=== PATIENT | female | born 1975 | race Caucasian/White ===

== ENCOUNTER 2023-04-03 15:16 | Emergency (ER) | payer MEDICARE, MEDICAID, SELFPAY ==
--- NOTE | ~2023-04-03 | CT_ITS ---
EXAMINATION: CT ABDOMEN AND PELVIS WITH CONTRAST CLINICAL INFORMATION: Abdominal pain. COMPARISON: None available. TECHNIQUE: Multidetector volumetric images were obtained from the superior aspect of the liver through the pubic symphysis following administration 85 mL of Omnipaque 350 intravenous contrast. Sagittal and coronal reformatted images were obtained on the technologist's workstation. Oral Contrast: No. This CT examination was performed using dose optimization techniques as appropriate, variously including the following: *Automated exposure control. *Adjustment of mA and/or kV according to patient size (this includes techniques or standardized protocols for targeted exams where dose is matched to indication/reason for exam; i.e. extremities or head). *Use of iterative reconstruction technique. DLP: 481 mGy-cm FINDINGS: LUNG BASES: The visualized lung bases are unremarkable. LIVER, GALLBLADDER, AND BILIARY TREE: The liver is normal in size, shape, and attenuation. No focal hepatic lesion or biliary ductal dilatation is present. The gallbladder is unremarkable with no evidence of radiopaque gallstones, gallbladder wall thickening, or obvious pericholecystic inflammatory changes. PANCREAS: Unremarkable. SPLEEN: Unremarkable. ADRENAL GLANDS: Unremarkable. KIDNEYS AND URETERS: The kidneys are normal in size, shape, and attenuation. No hydronephrosis, hydroureter, or calculi seen. No perinephric stranding. BLADDER: Unremarkable. GASTROINTESTINAL TRACT: The small and large bowel are unremarkable. The appendix extends medially. The appendix is borderline in size measuring 7 mm. ABDOMINAL WALL: No significant hernia is appreciated. LYMPH NODES: Normal. VASCULAR: Unremarkable. PELVIC VISCERA: There is a small amount of free fluid within the pelvis. OSSEOUS STRUCTURES: Unremarkable. CT/CT abdomen pelvis w IV con IMPRESSION: Borderline appendix measuring 7 mm. No periappendiceal infiltration. Correlation and clinical follow-up suggested. Minimal free fluid within the pelvis. No other abnormality identified. Fleischner guidelines were followed.
[2023-04-03 15:44] VITALS: BP 133/92; PULSE 81; RESP 16; TEMP 37.1; O2SAT 98; BMI 32.5
--- NOTE | 2023-04-03 15:47 | ED_ITS ---
HPI - General Adult General Chief complaint: Abdominal Pain Stated complaint: Got Sick on lupillo/D/n/v/abd pain/bowels stink Time Seen by Provider: 04/03/23 16:29 Source: patient Mode of arrival: ambulatory Limitations: no limitations History of Present Illness HPI narrative: 47 year old female w/ no significant pmhx presents to the ED today w/ complaints of watery diarrhea, diffuse abdominal pain, nausea, vomiting, fever, and chills for the last three weeks. She states she was in [facility] in the beginning of [place] ugust where she accidentally consumed water and by the second day of her trip began to feel sick. She has been taking Advil and imodium with no improvement to her symptoms. She is unable to keep food/fluids down. Her last meal was 2 days ago. She states that her is currently at [facility] being evaluated for similar symptoms. MD complaint: N/V/D, abdominal pain Onset (ago): week(s) (3) Location: abdomen Radiation: non-radiation Severity: moderate Severity scale (1-10): 6 Pain Consistency: constant Relieving factors: none Exacerbating factors: eating and movement Associated symptoms: fever/chills, headaches, loss of appetite, malaise and weakness Treatments prior to arrival: NSAID and other (imodium) Related Data Previous Rx's Medication Instructions Recorded azithromycin 500 mg tablet 500 mg PO DAILY 3 days #3 tabs 04/03/23 ondansetron 4 mg disintegrating 4 mg PO Q8H PRN nausea and 04/03/23 tablet vomiting #20 tabs Allergies Allergy/AdvReac Type Severity Reaction Status Date / Time gluten [GLUTEN] Allergy Unknown UNKNOWN Unverified 04/28/20 19:32 wheat [WHEAT] Allergy Unknown UNKNOWN Unverified 04/28/20 19:32 RYE Allergy Unknown UNKNOWN Uncoded 04/28/20 19:32 Review of Systems Review of Systems: Yes all other systems are reviewed and are negative [facility] Social History Social History Advance Directives: No Advance Directives Information Provided: No Physical Exam ED Vital Signs: Vital Signs - 24 hr 04/03/23 15:44 Temperature 98.7 F Pulse Rate 81 Respiratory Rate 16 Blood Pressure 133/92 H Pulse Oximetry 98 BMI result Body Mass Index 32.5 Appearance: Alert. Oriented X3. No acute distress. Head: normocephalic, atraumatic. Eyes: Pupils equal, round and reactive to light. Neck: Normal inspection. Neck supple. CVS: Normal heart rate and rhythm. Pulses normal. Respiratory: No respiratory distress. Breath sounds normal. Abdomen: (+) diffuse tenderness w/ palpation. No guarding or rebound tenderness. Non-distended. +BS x4 Skin: Skin warm and dry. Normal skin color. Normal skin turgor. No rashes. Extremities: No lower extremity edema. No joint swelling. Neuro/psych: Oriented X 3. No motor deficit. No sensory deficit. CN II-XII intact. Normal speech and cognition. Course Course Course Narrative: RME- 47-year-old female presents for evaluation of dental pain, persistent foul- smelling diarrhea. Plan for labs, GI panel. She reports that she was in [facility] recently Reevaluation(s) Reevaluation #1: Patient received in sign-out at change in shift pending CT scan and disposition. Patient's CT scan shows a borderline appendix 7 mm but no periappendiceal changes. On exam, the patient is tender the left lower quadrant but not the right lower quadrant. I have a low suspicion for acute appendicitis as her symptoms started 3 weeks ago. We will treat with azithromycin for traveler's di arrhea. I discussed all this with the patient and discussed return precautions including severe right lower quadrant dental pain, fevers to return to the ER Time: 20:09 Medications Administered Discontinued Medications Generic Name Dose Route Start Last Admin Trade Name Freq PRN Reason Stop Dose Admin Sodium Chloride 1,000 mls @ 999 mls/hr 04/03/23 17:00 04/03/23 19:46 Ns IVCONT 04/03/23 18:00 Infused .Q1H1M NIEVES Infusion Sodium Chloride 1,000 mls @ 999 mls/hr 04/03/23 18:45 04/03/23 19:49 Ns IVCONT 04/03/23 19:45 Not Given .Q1H1M NIEVES Iohexol 100 ml 04/03/23 18:02 04/03/23 18:03 Iohexol 350 Mg/Ml 100 Ml Infus..Btl IV 04/03/23 18:03 85 ml ONCE ONE Administration Ketorolac Tromethamine 30 mg 04/03/23 18:43 04/03/23 18:57 Ketorolac Tromethamine 30 Mg/Ml Vial IVPUSH 04/03/23 18:44 30 mg ONCE ONE Administration Morphine Sulfate 4 mg 04/03/23 18:43 04/03/23 18:57 Morphine Sulfate 4 Mg/Ml Cartridge IVPUSH 04/03/23 18:44 4 mg ONCE ONE Administration Protocol Ondansetron HCl 4 mg 04/03/23 16:52 04/03/23 17:47 Ondansetron Hcl 4 Mg/2 Ml Vial IVPUSH 04/03/23 16:53 4 mg ONCE ONE Administration Medical Decision Making Medical Decision Making [facility] Narrative: 47 year old female w/ no significant pmhx presents to the ED today w/ complaints of watery diarrhea, diffuse abdominal pain, nausea, vomiting, fever, and chills for the last three weeks. On exam VSS, NAD, and PE as above with no peritoneal signs. No evidence of acute abdomen at this time. Likely an infectious gastroenteritis, suspicious of Giardia given the history. Lower suspicion for acute hepatobiliary disease, acute pancreatitis, bowel obstruction, or C. diff. Plan: labs, CT abdomen/pelvis, IVF, pain control, stool culture, urine HCG patient given morphine and Toradol, tearful and the bed. CT scan is pending. IV fluids ordered. signed out to PM provider. Differential Diagnosis Differential Diagnoses: The differential diagnosis associated with the presentation includes acute hepatobiliary disease, acute pancreatitis, colitis, bowel obstruction, or C. diff. Admission/Observation Consideration of admission/observation: Escalation of care including admission/observation considered 3 weeks of abdominal pain, nausea, vomiting, unable to tolerate p.o. for the last 2 days, considered observation/admission Lab Data [facility] Lab Attestation statement: I reviewed the patient's lab results. no leukocytosis, normal LFTs 04/03/23 15:56 04/03/23 15:56 Labs: Lab Results 04/03/23 04/03/23 04/03/23 Range/Units 15:56 15:56 15:56 WBC 10.1 (4.8-10.8) X10*3/uL RBC 4.33 (4.20-5.50) X10*6/uL Hgb 14.1 (12.0-16.0) g/dl Hct 40.4 (37.0-47.0) % MCV 93.3 (80.0-98.0) fL MCH 32.6 (27.0-33.0) pg MCHC 34.9 (31.0-35.0) g/dl RDW 13.8 (11.0-16.0) % Plt Count 280 (160-400) X10*3/uL MPV 9.6 (9.4-12.3) fL Immature Gran % (Auto) 0.4 (0.0-0.4) % Neut % (Auto) 71.3 (45-73) % Lymph % (Auto) 20.3 (20-40) % [place] % (Auto) 7.9 (2-11) % Eos % (Auto) 0.1 (0-4) % Baso % (Auto) 0.0 (0-2) % Lymph # (Auto) 2.1 (1.2-4.9) X10*3/uL [place] # (Auto) 0.8 (0.1-1.2) X10*3/uL Eos # (Auto) 0.0 (0.0-0.4) X10*3/uL Baso # (Auto) 0.0 (0.0-0.2) X10*3/uL Abs Immat Gran (auto) 0.04 H (0.00-0.03) X10*3/uL Absolute Neuts (auto) 7.2 (2.0-8.3) x10*3/uL Absolute Nucleated RBC 0.000 (0.0-0.012) X10*3/uL Nucleated RBC % (auto) 0.0 (0.0-0.2) /100WBC Sodium 136 (135-145) mmol/L Potassium 3.3 (3.3-5.1) mmol/L Chloride 107 (96-108) mmol/L Carbon Dioxide 24 (22-29) mmol/L Anion Gap 8 L (12-20) BUN 10 (9-16) mg/dL Creatinine 0.70 (0.5-1.4) mg/dL Estim Creat Clear Calc 86.4 Estimated GFR > 60 Random Glucose 87 (60-115) mg/dL Calcium 9.1 (8.4-10.2) mg/dL Total Bilirubin 0.2 (0.0-1.0) mg/dL AST 15 (5-31) U/L ALT 19 (0-31) U/L Alkaline Phosphatase 72 (39-117) U/L Total Protein 6.6 (6.5-8.0) g/dL Albumin 3.8 (3.5-5.0) g/dL Lipase 16 (8-78) U/L Urine Color Yellow Urine Appearance Clear Urine pH 6.0 (5.0-9.0) Ur Specific [place] 1.015 (1.005-1.025) Urine Protein Negative (Neg-Trace) mg/dL Urine Glucose (UA) Negative (Negative) mg/dL Urine Ketones Negative (Negative) mg/dL Urine Blood Negative (Negative) Urine Nitrite Negative (Negative) Ur Leukocyte Esterase Negative (Negative) Urine RBC 0-2 (0-2) /HPF Urine WBC 0-5 (0-5) /HPF Ur Squamous Epith Cells 11-20 (0-2) /HPF Urine Bacteria 1+ (None Seen) Hyaline Casts 0-2 (0-2) /LPF Urine Test (NEGATIVE) 04/03/23 Range/Units 15:56 WBC (4.8-10.8) X10*3/uL RBC (4.20-5.50) X10*6/uL Hgb (12.0-16.0) g/dl Hct (37.0-47.0) % MCV (80.0-98.0) fL MCH (27.0-33.0) pg MCHC (31.0-35.0) g/dl RDW (11.0-16.0) % Plt Count (160-400) X10*3/uL MPV (9.4-12.3) fL Immature Gran % (Auto) (0.0-0.4) % Neut % (Auto) (45-73) % Lymph % (Auto) (20-40) % [place] % (Auto) (2-11) % Eos % (Auto) (0-4) % Baso % (Auto) (0-2) % Lymph # (Auto) (1.2-4.9) X10*3/uL [place] # (Auto) (0.1-1.2) X10*3/uL Eos # (Auto) (0.0-0.4) X10*3/uL Baso # (Auto) (0.0-0.2) X10*3/uL Abs Immat Gran (auto) (0.00-0.03) X10*3/uL Absolute Neuts (auto) (2.0-8.3) x10*3/uL Absolute Nucleated RBC (0.0-0.012) X10*3/uL Nucleated RBC % (auto) (0.0-0.2) /100WBC Sodium (135-145) mmol/L Potassium (3.3-5.1) mmol/L Chloride (96-108) mmol/L Carbon Dioxide (22-29) mmol/L Anion Gap (12-20) BUN (9-16) mg/dL Creatinine (0.5-1.4) mg/dL Estim Creat Clear Calc Estimated GFR Random Glucose (60-115) mg/dL Calcium (8.4-10.2) mg/dL Total Bilirubin (0.0-1.0) mg/dL AST (5-31) U/L ALT (0-31) U/L Alkaline Phosphatase (39-117) U/L Total Protein (6.5-8.0) g/dL Albumin (3.5-5.0) g/dL Lipase (8-78) U/L Urine Color Urine Appearance Urine pH (5.0-9.0) Ur Specific [place] (1.005-1.025) Urine Protein (Neg-Trace) mg/dL Urine Glucose (UA) (Negative) mg/dL Urine Ketones (Negative) mg/dL Urine Blood (Negative) Urine Nitrite (Negative) Ur Leukocyte Esterase (Negative) Urine RBC (0-2) /HPF Urine WBC (0-5) /HPF Ur Squamous Epith Cells (0-2) /HPF Urine Bacteria (None Seen) Hyaline Casts (0-2) /LPF Urine Test NEGATIVE (NEGATIVE) Prescription Management I considered prescription management with: Pain Medication Critical Care Time Critical Care Time Critical Care Time: No Discharge Plan Discharge Clinical Impression: Nausea, vomiting and diarrhea Patient Disposition: Home, Self-Care Instructions: Traveler's Diarrhea (ED) Additional Instructions: Your symptoms are most likely related to traveler's diarrhea, or a bacteria that You ingested while on vacation. Take the antibiotic 500 mg 3 times daily for the next 3 days You may use ibuprofen/Tylenol for abdominal pain Use Zofran as needed for nausea/vomiting Return for new or worsening symptoms, especially if he develops severe right lower abdominal pain Prescriptions: New azithromycin 500 mg tablet 500 mg PO DAILY 3 Days Qty: 3 0RF ondansetron 4 mg tablet,disintegrating 4 mg PO Q8H PRN (Reason: nausea and vomiting) Qty: 20 0RF
[2023-04-03 16:07] LABS: MANUAL DIFF FLAG NO
[2023-04-03 16:10] LABS: Eosinophils Percent Auto 0.1 % (0-4); Hematocrit 40.4 % (37.0-47.0); Hemoglobin 14.1 g/dl (12.0-16.0); Imm Gran Abs Auto 0.04 X10*3/uL (0.00-0.03); Imm Gran Pct Auto 0.4 % (0.0-0.4); Lymphocytes Absolute Auto 2.1 X10*3/uL (1.2-4.9); Lymphocytes Percent Auto 20.3 % (20-40); Mean Corpuscular HGB Conc 34.9 g/dl (31.0-35.0); Mean Corpuscular Hemoglobin 32.6 pg (27.0-33.0); Mean Corpuscular Volume 93.3 fL (80.0-98.0); Mean Platelet Volume 9.6 fL (9.4-12.3); Monocytes Absolute Auto 0.8 X10*3/uL (0.1-1.2); Monocytes Percent Auto 7.9 % (2-11); Neutrophils Absolute Auto 7.2 x10*3/uL (2.0-8.3); Neutrophils Percent Auto 71.3 % (45-73); Platelet Count 280 X10*3/uL (160-400); Red Blood Count 4.33 X10*6/uL (4.20-5.50); Red Cell Distribution Width 13.8 % (11.0-16.0); White Blood Count 10.1 X10*3/uL (4.8-10.8)
[2023-04-03 16:11] LABS: Appearance Urine Clear; Color Urine Yellow; Glucose Urine UA Negative (Negative); Leukocyte Esterase Urine Negative (Negative); Nitrite Urine Negative (Negative); Specific Gravity - Urine 1.015 (1.005-1.025); Urine Blood Negative (Negative); Urine Ketones Negative (Negative); Urine Protein Negative (Neg-Trace)
[2023-04-03 16:13] LABS: Bacteria Urine 1+ (None Seen); Hyaline Casts Urine 0-2 /LPF (0-2); RBC Urine 0-2 /HPF (0-2); WBC Urine 0-5 /HPF (0-5)
[2023-04-03 16:15] LABS: UPreg QC Valid YES; Urine Pregnancy NEGATIVE (NEGATIVE)
[2023-04-03 16:25] LABS: Alanine Aminotransferase 19 U/L (0-31); Albumin Level 3.8 g/dL (3.5-5.0); Alkaline Phosphatase 72 U/L (39-117); Anion Gap 8 (12-20); Aspartate Amino Transferase 15 U/L (5-31); Bilirubin Total 0.2 mg/dL (0.0-1.0); Blood Urea Nitrogen 10 mg/dL (9-16); Calcium 9.1 mg/dL (8.4-10.2); Carbon Dioxide 24 mmol/L (22-29); Chloride 107 mmol/L (96-108); Creatinine Clr Calc Pharmacy 86.4; Estimated Glomerular Filt Rate > 60; Glucose Random 87 mg/dL (60-115); Lipase 16 U/L (8-78); Potassium 3.3 mmol/L (3.3-5.1); Sodium 136 mmol/L (135-145); Total Protein 6.6 g/dL (6.5-8.0)
--- OUTSIDE RECORDS SUMMARY | 2023-04-03 16:54 | XMS_ITS | Continuity of Care Document ---
Author Name Unknown Organization [facility] Address [address] [place] [address]- Care Team Providers Care Development Manager Name Role Phone Alexander DEL CASTILLO, Avila Shea Primary Care Physician Encounter [facility] Date(s): 11/02/21 - 12/23/21 [facility] [address] [place] [address]- Attending Physician: Not on Staff, Attending MD Allergies, Adverse Reactions, Alerts Substance Reaction Severity Status predniSONE Active Medications clonazePAM 0.5 mg oral tablet 1 tablet = 0.5 mg, By Mouth, 3 times a day, # 90 tablet, 1 Refills, Maintenance, 10/26/21 13:42:00 EDT, Tablet, [facility], Partial fill upon patient request if the prescription is for aschedule II opioid drug. FOR BUBBLE PACKS PLEASE Start Date: 10/26/21 Stop Date: 12/25/21 Status: Ordered desvenlafaxine (as base) 100 mg oral tablet, extended release 1 tablet = 100 mg, By Mouth, Daily in AM, # 30 tablet, 5 Refills, Maintenance, 10/09/21 15:27:00 EST, ER Tablet, [facility], Partial fill upon patient request if the prescription is for a schedule II opioid drug. FOR BUBBLE PACK PLEASE Start Date: 10/09/21 Stop Date: 04/07/22 Status: Ordered gabapentin 600 mg oral tablet 1 tablet = 600 mg, By Mouth, 3 times a day, # 90 tablet, 1 Refills, Maintenance, 10/09/21 15:25:00 EST, [facility], FOR BUBBLE PACKS PLEASE Start Date: 10/09/21 Stop Date: 12/08/21 Status: Ordered prazosin 2 mg oral capsule 1 capsule = 2 mg, By Mouth, 4 times a day, # 120 capsule, 5 Refills, Maintenance, 10/26/21 13:41:00EDT, Capsule, [facility], Partial fill upon patient request if the prescription is fora schedule II opioid drug. Start Date: 10/26/21 Stop Date: 04/24/22 Status: Ordered traZODone 100 mg oral tablet 100 mg, 1, tablet, By Mouth, 2 times a day, # 60 tablet, Refills 5, Tot. Refills 5, Maintenance, 10/09/21 15:28:00 EST, Route to Pharmacy Electronically, [facility], Partial fill upon patient request if the prescription is for a schedule... Start Date: 10/09/21 Status: Ordered Vitamin D3 50,000 intl units oral capsule 1 capsule = 1,250 mcg, By Mouth, Every week, # 12 capsule, 0 Refills, Maintenance, 10/17/21 14:33:00 EST, Capsule, [facility], Partial fill upon patient request if the prescription is for a schedule II opioid drug. PLEASE ADD TO BUBBLE PACKS Start Date: 10/17/21 Stop Date: 01/09/22 Status: Ordered Vraylar 1.5 mg oral capsule 1 capsule = 1.5 mg, By Mouth, Daily, # 30 capsule, 5 Refills, Maintenance, 10/09/21 15:28:00 EST, [facility], Partial fill upon patient request if the prescription is for a schedule II opioid drug. FOR BUBBLE PACK PLEASE Start Date: 10/09/21 Status: Ordered Problem List Condition Effective Dates Status Health Status Inform ant Anxiety(Confirmed) Active Bipolar disorder(Confirmed) 1 Active Pseudoseizures(Confirmed) Active Fibromyalgia(Confirmed) Active Orbital pseudotumor(Confirmed) Active Syringomyelia(Confirmed) Active 1pt unsure if she is type 1 or 2 but has manic episodes Social History Social History Type Response Smoking Status 10 or more cigarette s (1/2 pack or more)/day in last 30 days; Other: 1.5-2/2 days; entered on: 05/26/21 Sex Female
--- OUTSIDE RECORDS SUMMARY | 2023-04-03 16:54 | XMS_ITS | Continuity of Care Document ---
Author Name Unknown Organization [facility] Address [address] [place] [address]- Care Team Providers Care Behavioral Health Technician Name Role Phone Alexander DEL CASTILLO, Avila Shea Primary Care Physician Encounter 11/10/21 - 12/28/21 [facility] [address], [address] [place], [place] [address] Attending Physician: Sirena Wynn NP Admitting Physician: Sirena Wynn NP Referring Physician: Sirena Wynn NP Allergies, Adverse Reactions, Alerts Substance Reaction Severity Status predniSONE Active Medications clonazePAM 0.5 mg oral tablet 1 tablet = 0.5 mg, By Mouth, 3 times a day, # 90 tablet, 1 Refills, Maintenance, 10/26/21 13:42:00 EDT, Tablet, [facility], Partial fill upon patient request if the prescription is for aschedule II opioid drug. FOR BUBBLE PACKS PLEASE Start Date: 10/26/21 Stop Date: 12/25/21 Status: Ordered desvenlafaxine (as base) 100 mg oral tablet, extended release 1 tablet = 100 mg, By Mouth, Daily in AM, # 30 tablet, 5 Refills, Maintenance, 10/09/21 15:27:00 EST, ER Tablet, [facility], Partial fill upon patient request if the prescription is for a schedule II opioid drug. FOR BUBBLE PACK PLEASE Start Date: 10/09/21 Stop Date: 04/07/22 Status: Ordered gabapentin 600 mg oral tablet 1 tablet = 600 mg, By Mouth, 3 times a day, # 90 tablet, 1 Refills, Maintenance, 10/09/21 15:25:00 EST, [facility], FOR BUBBLE PACKS PLEASE Start Date: 10/09/21 Stop Date: 12/08/21 Status: Ordered prazosin 2 mg oral capsule 1 capsule = 2 mg, By Mouth, 4 times a day, # 120 capsule, 5 Refills, Maintenance, 10/26/21 13:41:00EDT, Capsule, [facility], Partial fill upon patient request if the prescription is fora schedule II opioid drug. Start Date: 10/26/21 Stop Date: 04/24/22 Status: Ordered traZODone 100 mg oral tablet 100 mg, 1, tablet, By Mouth, 2 times a day, # 60 tablet, Refills 5, Tot. Refills 5, Maintenance, 10/09/21 15:28:00 EST, Route to Pharmacy Electronically, [facility], Partial fill upon patient request if the prescription is for a schedule... Start Date: 10/09/21 Status: Ordered Vitamin D3 50,000 intl units oral capsule 1 capsule = 1,250 mcg, By Mouth, Every week, # 12 capsule, 0 Refills, Maintenance, 10/17/21 14:33:00 EST, Capsule, [facility], Partial fill upon patient request if the prescription is for a schedule II opioid drug. PLEASE ADD TO BUBBLE PACKS Start Date: 10/17/21 Stop Date: 01/09/22 Status: Ordered Vraylar 1.5 mg oral capsule 1 capsule = 1.5 mg, By Mouth, Daily, # 30 capsule, 5 Refills, Maintenance, 10/09/21 15:28:00 EST, [facility], Partial fill upon patient request [...]
--- OUTSIDE RECORDS SUMMARY | 2023-04-03 16:54 | XMS_ITS | Continuity of Care Document ---
Author Name Unknown Organization [facility] Address [address] [place] [address]- Care Team Providers Care Systems Administrator Name Role Phone Alexander DEL CASTILLO, Avila Shea Primary Care Physician Encounter [facility] Date(s): 11/26/22 - 12/26/22 [facility] [address] [place] [address]- Allergies, Adverse Reactions, Alerts Substance Reaction Severity Status predniSONE Active Immunizations Given and Recorded Vaccine Date Status Refusal Reason [id number] 12y+ bivalent booster vax 06/07/22 Given influenza virus vaccine, inactivated 06/07/22 Give n Medications clonazePAM 0.5 mg oral tablet 1 tablet = 0.5 mg, By Mouth, 3 times a day, prn anxiety attacks, # 90 tablet, 1 Refills, Maintenance, 07/27/22 14:13:00 EST, [facility] Start Date: 07/27/22 Stop Date: 09/25/22 Status: Ordered desvenlafaxine (as base) 100 mg oral tablet, extended release 1 tablet = 100 mg, By Mouth, Daily in AM, # 30 tablet, 5 Refills, Maintenance, 02/14/22 15:40:00 EDT, ER Tablet, [facility], Partial fill upon patient request if the prescription is for a schedule II opioid drug. FOR BUBBLE PACK PLEASE Start Date: 02/14/22 Stop Date: 08/13/22 Status: Ordered gabapentin 600 mg oral tablet 1 tablet, By Mouth, 3 times a day, X30 DAYS., # 90 tablet, 5 Refills, 02/14/22 15:39:00 EDT, [facility] Start Date: 02/14/22 Status: Ordered Orthotics See Instructions, # 2 each, Maintenance, dx: Ankle instability, chronic ankle inversion, 03/20/22 9:52:00 EDT, Supply Start Date: 03/20/22 Status: Ordered prazosin 2 mg oral capsule 1 capsule = 2 mg, By Mouth, 4 times a day, # 120 capsule, 5 Refills, Maintenance, 04/18/22 14:23:00EDT, Capsule, [facility], Partial fill upon patient request if the prescription is fora schedule II opioid drug. Start Date: 04/18/22 Stop Date: 10/15/22 Status: Ordered traZODone 100 mg oral tablet 200 mg, 2, tablet, By Mouth, Daily at bedtime, # 60 tablet, Refills 5, Tot. Refills 5, Maintenance,02/14/22 15:37:00 EDT, Route to Pharmacy Electronically, [facility], Partial fill uponpatient request if the prescription is for a schedu... Start Date: 02/14/22 Stop Date: 08/13/22 Status: Ordered Vitamin D3 1000 intl units oral tablet 1 tablet = 25 mcg, By Mouth, Daily, # 90 tablet, 1 Refills, Maintenance, 02/14/22 15:35:00 EDT, Tablet, [facility], Partial fill upon patient request if the prescription is for a schedule II opioid drug. Start Date: 02/14/22 Stop Date: 08/13/22 Status: Ordered Vraylar 3 mg oral capsule 1 capsule = 3 mg, By Mouth, Daily, dose increased, # 30 capsule, 5 Refills, Maintenance, 02/14/22 15:36:00 EDT, [facility], Partial fill upon patient request if the prescription is for aschedule II opioid drug. Start Date: 02/14/22 Status: Ordered Problem List Condition Confirmation Course Effective Dates Status H ealth Status Informant Anxiety Confirmed Active Depression Confirmed Active Pseudoseizures Confirmed Active Fibromyalgia Confirmed Active Orbital pseudotumor Confirmed Active PTSD (post-traumatic stress disorder) Confirmed Active Syringomyelia Confirmed Active Social History Social History Type Response Smoking Status 10 or more cigarette s (1/2 pack or more)/day in last 30 days; Other: 1.5-2/2 days; entered on: 05/26/21 Sex Female Patient Care team information Care Team Personnel Name: Alexander DEL CASTILLO, Avila Shea Position: S Primary Care Physician Member Role: PCP Address: Address: [address] [place] [address] [place] [address]- Care Team Related Persons Name: JORDAN PÉREZ Address: [facility] [address] [place] [address]
--- OUTSIDE RECORDS SUMMARY | 2023-04-03 16:54 | XMS_ITS | Continuity of Care Document ---
Author Name Unknown Organization [facility] Address [address] [place] [address]- Care Team Providers Care Commissioning Editor Name Role Phone Avila Munoz MD Primary Care Physician Encounter [facility] Date(s): 12/22/19 - 12/29/19 [facility] [address] [place] [address]- [facility] Attending Physician: Avila Munoz MD Allergies, Adverse Reactions, Alerts Substance Reaction Severity Status predniSONE Active Medications docusate sodium 100 mg oral capsule 100 mg, 1, capsule, By Mouth, 2 times a day, PRN, # 20 capsule, Refills 0, Tot. Refills 0, Maintenance, for constipation, 12/22/19 11:18:00 EDT, Route to Pharmacy Electronically, [facility][id number] Start Date: 12/22/19 Status: Ordered gabapentin 600 mg oral tablet 1 tablet = 600 mg, By Mouth, 3 times a day, # 90 tablet, 2 Refills, Maintenance, 12/11/19 15:28:00 EDT, [facility] #[id number] Start Date: 12/11/19 Status: Ordered MiraLax oral powder for reconstitution = 17 Gm, By Mouth, Daily, PRN Constipation, for 14 days, dissolve in water before taking, # 527 Gm,1 Refills, Acute 01/19/20 11:19:00 EDT, 12/22/19 11:19:00 EDT, REC Powder, [facility] #[id number], 17 Gm By Mouth Daily,x14 days,PRN:Constipation,... Start Date: 12/22/19 Stop Date: 01/19/20 Status: Ordered traZODone 50 mg oral tablet 50 mg, 1, tablet, By Mouth, Daily at bedtime, # 30 tablet, Refills 2, Tot. Refills 2, Maintenance, 12/11/19 15:30:00 EDT, Route to Pharmacy Electronically, [facility][id number] Start Date: 12/11/19 Status: Ordered Social History Social History Type Response Smoking Status 5-9 cigarettes (betw een 1/4 to 1/2 pack)/day in last 30 days;10 or more cigarettes (1/2 pack or more)/day in last 30 days entered on: 12/11/19 Sex Female
--- OUTSIDE RECORDS SUMMARY | 2023-04-03 16:54 | XMS_ITS | Continuity of Care Document ---
Author Name Unknown Organization [facility] Address [address] [place] [address]- Care Team Providers Care Coremaker Machine Name Role Phone Alexander DEL CASTILLO, Avila Shea Primary Care Physician Encounter [facility] [place] Date(s): 07/17/21 - 08/17/21 [facility] [address] [place] [address]- Attending Physician: Angelina Friend MD Admitting Physician: Angelnia Friend MD Allergies, Adverse Reactions, Alerts Substance Reaction Severity Status predniSONE Active Medications clonazePAM 0.5 mg oral tablet 1 tablet = 0.5 mg, By Mouth, 3 times a day, # 90 tablet, 2 Refills, Maintenance, 05/26/21 15:34:00 EDT, Tablet, [facility] #[id number], Partial fill upon patient request if the prescription is for a schedule II opioid drug. Start Date: 05/26/21 Stop Date: 08/24/21 Status: Ordered desvenlafaxine (as base) 100 mg oral tablet, extended release 1 tablet = 100 mg, By Mouth, Daily, # 30 tablet, 2 Refills, Maintenance, 05/26/21 15:35:00 EDT, ER Tablet, [facility] #[id number], Partial fill upon patient request if the prescription is for a schedule II opioid drug. Start Date: 05/26/21 Stop Date: 08/24/21 Status: Ordered docusate sodium 100 mg oral capsule 100 mg, 1, capsule, By Mouth, 2 times a day, PRN, # 20 capsule, Refills 0, Tot. Refills 0, Maintenance, for constipation, 12/22/19 11:18:00 EDT, Route to Pharmacy Electronically, [facility][id number] Start Date: 12/22/19 Status: Ordered gabapentin 600 mg oral tablet 1 tablet = 600 mg, By Mouth, 3 times a day, # 90 tablet, 3 Refills, Maintenance, 05/26/21 15:36:00 EDT, [facility] #[id number] Start Date: 05/26/21 Stop Date: 09/23/21 Status: Ordered meloxicam 15 mg oral tablet 1 tablet = 15 mg, By Mouth, Daily, # 14 tablet, 0 Refills, Maintenance, 07/17/21 16:59:00 EST, Tablet, [facility] #[id number], Partial fill upon patient request if the prescription is for a schedule II opioid drug. Start Date: 07/17/21 Stop Date: 07/31/21 Status: Ordered prazosin 2 mg oral capsule 1 capsule = 2 mg, By Mouth, 4 times a day, # 120 capsule, 2 Refills, Maintenance, 05/26/21 15:34:00EDT, Capsule, [facility] #[id number], Partial fill upon patient request if the prescription isfor a schedule II opioid drug. Start Date: 05/26/21 Stop Date: 08/24/21 Status: Ordered traZODone 100 mg oral tablet 100 mg, 1, tablet, By Mouth, 2 times a day, # 180 tablet, Refills 0, Tot. Refills 0, Maintenance, 05/26/21 15:35:00 EDT, Route to Pharmacy Electronically, [facility] #[id number], Partial fill upon patient request if the prescription is for a sche... Start Date: 05/26/21 Status: Ordered traZODone 50 mg oral tablet 50 mg, 1, tablet, By Mouth, Daily at bedtime, # 30 tablet, Refills 2, Tot. Refills 2, Maintenance, 12/11/19 15:30:00 EDT, Route to Pharmacy Electronically, [facility] #[id number] Start Date: 12/11/19 Status: Ordered Vraylar 3 mg oral capsule 1 capsule = 3 mg, By Mouth, Daily, # 30 capsule, 2 Refills, Maintenance, 05/26/21 15:34:00 EDT, [facility] #[id number], Partial fill upon patient request if the prescription is for a schedule IIopioid drug. Start Date: 05/26/21 Stop Date: 08/24/21 Status: Ordered Problem List Condition Effective Dates Status Health Status Inform ant Anxiety(Confirmed) Active Bipolar disorder(Confirmed) 1 Active Fibromyalgia(Confirmed) Active 1pt unsure if she is type 1 or 2 but has manic episodes Social History Social History Type Response Smoking Status 10 or more cigarette s (1/2 pack or more)/day in last 30 days; Other: 1.5-2/2 days; entered on: 05/26/21 Sex Female
--- OUTSIDE RECORDS SUMMARY | 2023-04-03 16:54 | XMS_ITS | Continuity of Care Document ---
Author Name Unknown Organization [facility] Address [address] [place] [address]- Care Team Providers Care Olericulturist Name Role Phone Alexander DEL CASTILLO, Avila Shea Primary Care Physician Encounter [facility] Date(s): 11/26/22 - 12/26/22 [facility] [address] [place] [address]- Attending Physician: Riccardo Pena Admitting Physician: AdmRiccardo francis Referring Physician: AdmtrRiccardo Allergies, Adverse Reactions, Alerts Substance Reaction Severity Status predniSONE Active Immunizations Given and Recorded Vaccine Date Status Refusal Reason [id number] 12y+ bivalent booster vax 06/07/22 Given influenza virus vaccine, inactivated 06/07/22 Give n Medications clonazePAM 0.5 mg oral tablet 1 tablet = 0.5 mg, By Mouth, 3 times a day, prn anxiety attacks, # 90 tablet, 1 Refills, Maintenance, 07/27/22 14:13:00 EST, [facility] Start Date: 07/27/22 Stop Date: 09/25/22 Status: Ordered desvenlafaxine (as base) 100 mg oral tablet, extended release 1 tablet = 100 mg, By Mouth, Daily in AM, # 30 tablet, 5 Refills, Maintenance, 02/14/22 15:40:00 EDT, ER Tablet, [facility], Partial fill upon patient request if the prescription is for a schedule II opioid drug. FOR BUBBLE PACK PLEASE Start Date: 02/14/22 Stop Date: 08/13/22 Status: Ordered gabapentin 600 mg oral tablet 1 tablet, By Mouth, 3 times a day, X30 DAYS., # 90 tablet, 5 Refills, 02/14/22 15:39:00 EDT, [facility] Start Date: 02/14/22 Status: Ordered Orthotics See Instructions, # 2 each, Maintenance, dx: Ankle instability, chronic ankle inversion, 03/20/22 9:52:00 EDT, Supply Start Date: 03/20/22 Status: Ordered prazosin 2 mg oral capsule 1 capsule = 2 mg, By Mouth, 4 times a day, # 120 capsule, 5 Refills, Maintenance, 04/18/22 14:23:00EDT, Capsule, [facility], Partial fill upon patient request if the prescription is fora schedule II opioid drug. Start Date: 04/18/22 Stop Date: 10/15/22 Status: Ordered traZODone 100 mg oral tablet 200 mg, 2, tablet, By Mouth, Daily at bedtime, # 60 tablet, Refills 5, Tot. Refills 5, Maintenance,02/14/22 15:37:00 EDT, Route to Pharmacy Electronically, [facility], Partial fill uponpatient request if the prescription is for a schedu... Start Date: 02/14/22 Stop Date: 08/13/22 Status: Ordered Vitamin D3 1000 intl units oral tablet 1 tablet = 25 mcg, By Mouth, Daily, # 90 tablet, 1 Refills, Maintenance, 02/14/22 15:35:00 EDT, Tablet, [facility], Partial fill upon patient request if the prescription is for a schedule II opioid drug. Start Date: 02/14/22 Stop Date: 08/13/22 Status: Ordered Vraylar 3 mg oral capsule 1 capsule = 3 mg, By Mouth, Daily, dose increased, # 30 capsule, 5 Refills, Maintenance, 02/14/22 15:36:00 EDT, [facility], Partial fill upon patient request [...] 1.5-2/2 days; entered on: 05/26/21 Sex Female Laboratory * Event Display: Non BH Lab Results Authored Date: * Event Display: Non BH Lab Results Authored Date: * Event Display: Non [facility] Lab Results Authored Date: Patient Care team information Care Team Personnel Name: Alexander DEL CASTILLO, Avila Shea Position: S Primary Care Physician Member Role: PCP Address: Address: [address] [place] [address] [place] [address]- Care Team Related Persons Name: JORDAN PÉREZ Address: [facility] [address] [place] [address]
--- OUTSIDE RECORDS SUMMARY | 2023-04-03 16:54 | XMS_ITS | Continuity of Care Document ---
Author Name Unknown Organization [facility] Address [address] [place] [address]- Care Team Providers Care Remnants Cutter Name Role Phone Alexander DEL CASTILLO, Avila Shea Primary Care Physician Encounter [facility] Date(s): 11/15/22 - 12/15/22 [facility] [address] [place] [address]- Allergies, Adverse Reactions, Alerts Substance Reaction Severity Status predniSONE Active Immunizations Given and Recorded Vaccine Date Status Refusal Reason [id number] 12y+ bivalent booster vax 06/07/22 Given influenza virus vaccine, inactivated 06/07/22 Give n Medications clonazePAM 0.5 mg oral tablet 1 tablet = 0.5 mg, By Mouth, 3 times a day, prn anxiety attacks, # 90 tablet, 1 Refills, Maintenance, 07/27/22 14:13:00 EST, [facility] Start Date: 07/27/22 Stop Date: 09/25/22 Status: Ordered desvenlafaxine (as base) 100 mg oral tablet, extended release 1 tablet = 100 mg, By Mouth, Daily in AM, # 30 tablet, 5 Refills, Maintenance, 02/14/22 15:40:00 EDT, ER Tablet, [facility], Partial fill upon patient request if the prescription is for a schedule II opioid drug. FOR BUBBLE PACK PLEASE Start Date: 02/14/22 Stop Date: 08/13/22 Status: Ordered gabapentin 600 mg oral tablet 1 tablet, By Mouth, 3 times a day, X30 DAYS., # 90 tablet, 5 Refills, 02/14/22 15:39:00 EDT, [facility] Start Date: 02/14/22 Status: Ordered Orthotics See Instructions, # 2 each, Maintenance, dx: Ankle instability, chronic ankle inversion, 03/20/22 9:52:00 EDT, Supply Start Date: 03/20/22 Status: Ordered prazosin 2 mg oral capsule 1 capsule = 2 mg, By Mouth, 4 times a day, # 120 capsule, 5 Refills, Maintenance, 04/18/22 14:23:00EDT, Capsule, [facility], Partial fill upon patient request if the prescription is fora schedule II opioid drug. Start Date: 04/18/22 Stop Date: 10/15/22 Status: Ordered traZODone 100 mg oral tablet 200 mg, 2, tablet, By Mouth, Daily at bedtime, # 60 tablet, Refills 5, Tot. Refills 5, Maintenance,02/14/22 15:37:00 EDT, Route to Pharmacy Electronically, [facility], Partial fill uponpatient request if the prescription is for a schedu... Start Date: 02/14/22 Stop Date: 08/13/22 Status: Ordered Vitamin D3 1000 intl units oral tablet 1 tablet = 25 mcg, By Mouth, Daily, # 90 tablet, 1 Refills, Maintenance, 02/14/22 15:35:00 EDT, Tablet, [facility], Partial fill upon patient request if the prescription is for a schedule II opioid drug. Start Date: 02/14/22 Stop Date: 08/13/22 Status: Ordered Vraylar 3 mg oral capsule 1 capsule = 3 mg, By Mouth, Daily, dose increased, # 30 capsule, 5 Refills, Maintenance, 02/14/22 15:36:00 EDT, [facility], Partial fill upon patient request [...] Care Physician Member Role: PCP Address: Address: [address] [place] [address] [place] [address]- Care Team Related Persons Name: JORDAN PÉREZ Address: [facility] [address] [place] [address]
--- OUTSIDE RECORDS SUMMARY | 2023-04-03 16:54 | XMS_ITS | Continuity of Care Document ---
Author Name Unknown Organization [facility] Address [address] [place] [address]- Care Team Providers Care Hairspring Cutter Name Role Phone Alexander DEL CASTILLO, Avila Shea Primary Care Physician Encounter [facility] [place] Date(s): 05/31/22 - 06/30/[address] [address] Attending Physician: Riccardo Pena Admitting Physician: AdmRiccardo francis Referring Physician: AdmtrRiccardo Allergies, Adverse Reactions, Alerts Substance Reaction Severity Status predniSONE Active Immunizations Given and Recorded Vaccine Date Status Refusal Reason [id number] 12y+ bivalent booster vax 06/07/22 Given influenza virus vaccine, inactivated 06/07/22 Give n Medications clonazePAM 0.5 mg oral tablet 1 tablet = 0.5 mg, By Mouth, 3 times a day, prn anxiety attacks, # 90 tablet, 1 Refills, Maintenance, 05/25/22 12:56:00 EDT, [facility] Start Date: 05/25/22 Stop Date: 07/24/22 Status: Ordered desvenlafaxine (as base) 100 mg oral tablet, extended release 1 tablet = 100 mg, By Mouth, Daily in AM, # 30 tablet, 5 Refills, Maintenance, 02/14/22 15:40:00 EDT, ER Tablet, [facility], Partial fill upon patient request if the prescription is for a schedule II opioid drug. FOR BUBBLE PACK PLEASE Start Date: 02/14/22 Stop Date: 08/13/22 Status: Ordered gabapentin 600 mg oral tablet 1 tablet, By Mouth, 3 times a day, X30 DAYS., # 90 tablet, 5 Refills, 02/14/22 15:39:00 EDT, [facility] Start Date: 02/14/22 Status: Ordered Orthotics See Instructions, # 2 each, Maintenance, dx: Ankle instability, chronic ankle inversion, 03/20/22 9:52:00 EDT, Supply Start Date: 03/20/22 Status: Ordered prazosin 2 mg oral capsule 1 capsule = 2 mg, By Mouth, 4 times a day, # 120 capsule, 5 Refills, Maintenance, 04/18/22 14:23:00EDT, Capsule, [facility], Partial fill upon patient request if the prescription is fora schedule II opioid drug. Start Date: 04/18/22 Stop Date: 10/15/22 Status: Ordered traZODone 100 mg oral tablet 200 mg, 2, tablet, By Mouth, Daily at bedtime, # 60 tablet, Refills 5, Tot. Refills 5, Maintenance,02/14/22 15:37:00 EDT, Route to Pharmacy Electronically, [facility], Partial fill uponpatient request if the prescription is for a schedu... Start Date: 02/14/22 Stop Date: 08/13/22 Status: Ordered Vitamin D3 1000 intl units oral tablet 1 tablet = 25 mcg, By Mouth, Daily, # 90 tablet, 1 Refills, Maintenance, 02/14/22 15:35:00 EDT, Tablet, [facility], Partial fill upon patient request if the prescription is for a schedule II opioid drug. Start Date: 02/14/22 Stop Date: 08/13/22 Status: Ordered Vraylar 3 mg oral capsule 1 capsule = 3 mg, By Mouth, Daily, dose increased, # 30 capsule, 5 Refills, Maintenance, 02/14/22 15:36:00 EDT, [facility], Partial fill upon patient request [...] Name: Alexander DEL CASTILLO, Avila Shea Position: [facility] Primary Care Physician Member Role: PCP Address: Address: [address] [place] [address] [place] [address]- Care Team Related Persons Name: JORDAN PÉREZ Address: [facility] [address] [place] [address]
--- OUTSIDE RECORDS SUMMARY | 2023-04-03 16:54 | XMS_ITS | Continuity of Care Document ---
Author Name Unknown Organization [facility] Address [address] [place] [address]- Care Team Providers Care Chief Vendor Quality Name Role Phone Not on Staff, PCP Primary Care Physician Unavail able Encounter [facility] Date(s): 10/20/19 - 10/30/19 [facility] [address] [place] [address] [facility] Attending Physician: Riccardo Pena Admitting Physician: Riccardo Pena Referring Physician: Riccardo Pena Social History Social History Type Response Sex Female
--- OUTSIDE RECORDS SUMMARY | 2023-04-03 16:54 | XMS_ITS | Continuity of Care Document ---
Author Name Unknown Organization [facility] Address [address] [place] [address]- Care Team Providers Care Assistant Chief Train Dispatcher Name Role Phone Alexander DEL CASTILLO, Avila Shea Primary Care Physician [place] [facility] [place] 05/26[place]21 - 06/25/21 [facility] [address] [place] [address]- Attending Physician: Riccardo Pena Admitting Physician: AdmRiccardo francis Referring Physician: AdmtrRiccardo Allergies, Adverse Reactions, Alerts Substance Reaction Severity Status predniSONE Active Medications clonazePAM 0.5 mg oral tablet 1 tablet = 0.5 mg, By Mouth, 3 times a day, # 90 tablet, 2 Refills, Maintenance, 05/26/21 15:34:00 EDT, Tablet, [facility] #[id number], Partial fill upon patient request if the prescription is for a schedule II opioid drug. Start Date: 05/26/21 Stop Date: 08/24/21 Status: Ordered desvenlafaxine (as base) 100 mg oral tablet, extended release 1 tablet = 100 mg, By Mouth, Daily, # 30 tablet, 2 Refills, Maintenance, 05/26/21 15:35:00 EDT, ER Tablet, [facility] #[id number], Partial fill upon patient request if the prescription is for a schedule II opioid drug. Start Date: 05/26/21 Stop Date: 08/24/21 Status: Ordered docusate sodium 100 mg oral capsule 100 mg, 1, capsule, By Mouth, 2 times a day, PRN, # 20 capsule, Refills 0, Tot. Refills 0, Maintenance, for constipation, 12/22/19 11:18:00 EDT, Route to Pharmacy Electronically, [facility][id number] Start Date: 12/22/19 Status: Ordered gabapentin 600 mg oral tablet 1 tablet = 600 mg, By Mouth, 3 times a day, # 90 tablet, 3 Refills, Maintenance, 05/26/21 15:36:00 EDT, [facility] #[id number] Start Date: 05/26/21 Stop Date: 09/23/21 Status: Ordered prazosin 2 mg oral capsule 1 capsule = 2 mg, By Mouth, 4 times a day, # 120 capsule, 2 Refills, Maintenance, 05/26/21 15:34:00EDT, Capsule, [facility] #[id number], Partial fill upon patient request if the prescription isfor a schedule II opioid drug. Start Date: 05/26/21 Stop Date: 08/24/21 Status: Ordered traZODone 100 mg oral tablet 100 mg, 1, tablet, By Mouth, 2 times a day, # 180 tablet, Refills 0, Tot. Refills 0, Maintenance, 05/26/21 15:35:00 EDT, Route to Pharmacy Electronically, [facility] #[id number], Partial fill upon patient request if the prescription is for a sche... Start Date: 05/26/21 Status: Ordered traZODone 50 mg oral tablet 50 mg, 1, tablet, By Mouth, Daily at bedtime, # 30 tablet, Refills 2, Tot. Refills 2, Maintenance, 12/11/19 15:30:00 EDT, Route to Pharmacy Electronically, [facility] #[id number] Start Date: 12/11/19 Status: Ordered Vraylar 3 mg oral capsule 1 capsule = 3 mg, By Mouth, Daily, # 30 capsule, 2 Refills, Maintenance, 05/26/21 15:34:00 EDT, [facility] #[id number], Partial fill upon patient request if the [...]
--- OUTSIDE RECORDS SUMMARY | 2023-04-03 16:54 | XMS_ITS | Continuity of Care Document ---
Author Name Unknown Organization [facility] Address [address] [place] [address]- Care Team Providers Care After School Program Coordinator Name Role Phone Alexander DEL CASTILLO, Avila Shea Primary Care Physician [phone] Encounter [facility] [place] Date(s): 05/31/22 - 06/30/[address] [address] Attending Physician: Riccardo Pena Admitting Physician: AdmRiccardo francis Referring Physician: AdmtrRiccardo Allergies, Adverse Reactions, Alerts Substance Reaction Severity Status predniSONE Active Immunizations Given and Recorded Vaccine Date Status Refusal Reason [id number] 12y+ bivalent booster vax 06/07/22 Given influenza virus vaccine, inactivated 06/07/22 Give n Medications clonazePAM 0.5 mg oral tablet 1 tablet = 0.5 mg, By Mouth, 3 times a day, prn anxiety attacks, # 90 tablet, 1 Refills, Maintenance, 05/25/22 12:56:00 EDT, [facility] Start Date: 05/25/22 Stop Date: 07/24/22 Status: Ordered desvenlafaxine (as base) 100 mg oral tablet, extended release 1 tablet = 100 mg, By Mouth, Daily in AM, # 30 tablet, 5 Refills, Maintenance, 02/14/22 15:40:00 EDT, ER Tablet, [facility], Partial fill upon patient request if the prescription is for a schedule II opioid drug. FOR BUBBLE PACK PLEASE Start Date: 02/14/22 Stop Date: 08/13/22 Status: Ordered gabapentin 600 mg oral tablet 1 tablet, By Mouth, 3 times a day, X30 DAYS., # 90 tablet, 5 Refills, 02/14/22 15:39:00 EDT, [facility] Start Date: 02/14/22 Status: Ordered Orthotics See Instructions, # 2 each, Maintenance, dx: Ankle instability, chronic ankle inversion, 03/20/22 9:52:00 EDT, Supply Start Date: 03/20/22 Status: Ordered prazosin 2 mg oral capsule 1 capsule = 2 mg, By Mouth, 4 times a day, # 120 capsule, 5 Refills, Maintenance, 04/18/22 14:23:00EDT, Capsule, [facility], Partial fill upon patient request if the prescription is fora schedule II opioid drug. Start Date: 04/18/22 Stop Date: 10/15/22 Status: Ordered traZODone 100 mg oral tablet 200 mg, 2, tablet, By Mouth, Daily at bedtime, # 60 tablet, Refills 5, Tot. Refills 5, Maintenance,02/14/22 15:37:00 EDT, Route to Pharmacy Electronically, [facility], Partial fill uponpatient request if the prescription is for a schedu... Start Date: 02/14/22 Stop Date: 08/13/22 Status: Ordered Vitamin D3 1000 intl units oral tablet 1 tablet = 25 mcg, By Mouth, Daily, # 90 tablet, 1 Refills, Maintenance, 02/14/22 15:35:00 EDT, Tablet, [facility], Partial fill upon patient request if the prescription is for a schedule II opioid drug. Start Date: 02/14/22 Stop Date: 08/13/22 Status: Ordered Vraylar 3 mg oral capsule 1 capsule = 3 mg, By Mouth, Daily, dose increased, # 30 capsule, 5 Refills, Maintenance, 02/14/22 15:36:00 EDT, [facility], Partial fill upon patient request [...] Name: Alexander DEL CASTILLO, Avila Shea Position: [facility] Primary Care Physician Member Role: PCP Address: Address: [address] [place] [address] [place] [address]- Care Team Related Persons Name: JORDAN PÉREZ Address: [facility] [address] [place] [address]
--- OUTSIDE RECORDS SUMMARY | 2023-04-03 16:54 | XMS_ITS | Continuity of Care Document ---
Author Name Unknown Organization [facility] Address [address] [place] [address]- Care Team Providers Care Data Management Associate Name Role Phone Avila Munoz MD Primary Care Physician [phone] [place] [facility] [place](s): 12/08/19 - 12/15/19 [facility] [address] [place] [address]- [facility] Attending Physician: Avila Munoz MD Allergies, Adverse Reactions, Alerts Substance Reaction Severity Status predniSONE Active Medications gabapentin 600 mg oral tablet 1 tablet = 600 mg, By Mouth, 3 times a day, # 90 tablet, 2 Refills, Maintenance, 12/11/19 15:28:00 EDT, [facility][id number] Start Date: 12/11/19 Status: Ordered traZODone 50 mg oral tablet 50 mg, 1, tablet, By Mouth, Daily at bedtime, # 30 tablet, Refills 2, Tot. Refills 2, Maintenance, 12/11/19 15:30:00 EDT, Route to Pharmacy Electronically, [facility] #[id number] Start Date: 12/11/19 Status: Ordered Social History Social History Type Response Smoking Status 5-9 cigarettes (betw een 1/4 to 1/2 pack)/day in last 30 days;10 or more cigarettes (1/2 pack or more)/day in last 30 days entered on: 12/11/19 Sex Female
--- OUTSIDE RECORDS SUMMARY | 2023-04-03 16:54 | XMS_ITS | Continuity of Care Document ---
Author Name Unknown Organization [facility] Address [address] [place] [address]- Care Team Providers Care Nuclear Control Room Operator Name Role Phone Alexander DEL CASTILLO, Avila Shea Primary Care Physician [facility]counter [facility] Date(s): 11/23/21 - 12/23/21 [facility] [address] [place] [address]- Attending Physician: Riccardo Pena Admitting Physician: AdmRiccardo francis Referring Physician: AdmtrRiccardo Allergies, Adverse Reactions, Alerts Substance Reaction Severity Status predniSONE Active Medications clonazePAM 0.5 mg oral tablet 1 tablet = 0.5 mg, By Mouth, 3 times a day, # 90 tablet, 1 Refills, Maintenance, 10/26/21 13:42:00 EDT, Tablet, [facility], Partial fill upon patient request if the prescription is for aschedule II opioid drug. FOR BUBBLE PACKS PLEASE Start Date: 10/26/21 Stop Date: 12/25/21 Status: Ordered desvenlafaxine (as base) 100 mg oral tablet, extended release 1 tablet = 100 mg, By Mouth, Daily in AM, # 30 tablet, 5 Refills, Maintenance, 10/09/21 15:27:00 EST, ER Tablet, [facility], Partial fill upon patient request if the prescription is for a schedule II opioid drug. FOR BUBBLE PACK PLEASE Start Date: 10/09/21 Stop Date: 04/07/22 Status: Ordered gabapentin 600 mg oral tablet 1 tablet = 600 mg, By Mouth, 3 times a day, # 90 tablet, 1 Refills, Maintenance, 10/09/21 15:25:00 EST, [facility], FOR BUBBLE PACKS PLEASE Start Date: 10/09/21 Stop Date: 12/08/21 Status: Ordered prazosin 2 mg oral capsule 1 capsule = 2 mg, By Mouth, 4 times a day, # 120 capsule, 5 Refills, Maintenance, 10/26/21 13:41:00EDT, Capsule, [facility], Partial fill upon patient request if the prescription is fora schedule II opioid drug. Start Date: 10/26/21 Stop Date: 04/24/22 Status: Ordered traZODone 100 mg oral tablet 100 mg, 1, tablet, By Mouth, 2 times a day, # 60 tablet, Refills 5, Tot. Refills 5, Maintenance, 10/09/21 15:28:00 EST, Route to Pharmacy Electronically, [facility], Partial fill upon patient request if the prescription is for a schedule... Start Date: 10/09/21 Status: Ordered Vitamin D3 50,000 intl units oral capsule 1 capsule = 1,250 mcg, By Mouth, Every week, # 12 capsule, 0 Refills, Maintenance, 10/17/21 14:33:00 EST, Capsule, [facility], Partial fill upon patient request if the prescription is for a schedule II opioid drug. PLEASE ADD TO BUBBLE PACKS Start Date: 10/17/21 Stop Date: 01/09/22 Status: Ordered Vraylar 1.5 mg oral capsule 1 capsule = 1.5 mg, By Mouth, Daily, # 30 capsule, 5 Refills, Maintenance, 10/09/21 15:28:00 EST, [facility], Partial fill upon patient request [...]
--- OUTSIDE RECORDS SUMMARY | 2023-04-03 16:54 | XMS_ITS | Continuity of Care Document ---
Author Name Unknown Organization [facility] Address [address] [place] [address]- Care Team Providers Care Glassworker Name Role Phone Avila Munoz MD Primary Care Physician Encounter [facility] [place] Date(s): 07/17/21 - 08/16/21 [facility] [address] [place] [address]- Allergies, Adverse Reactions, Alerts Substance Reaction Severity Status predniSONE Active Medications clonazePAM 0.5 mg oral tablet 1 tablet = 0.5 mg, By Mouth, 3 times a day, # 90 tablet, 2 Refills, Maintenance, 05/26/21 15:34:00 EDT, Tablet, [facility] #[id number], Partial fill upon patient request if the prescription is for a schedule II opioid drug. Start Date: 05/26/21 Stop Date: 08/24/21 Status: Ordered desvenlafaxine (as base) 100 mg oral tablet, extended release 1 tablet = 100 mg, By Mouth, Daily, # 30 tablet, 2 Refills, Maintenance, 05/26/21 15:35:00 EDT, ER Tablet, [facility] #[id number], Partial fill upon patient request if the prescription is for a schedule II opioid drug. Start Date: 05/26/21 Stop Date: 08/24/21 Status: Ordered docusate sodium 100 mg oral capsule 100 mg, 1, capsule, By Mouth, 2 times a day, PRN, # 20 capsule, Refills 0, Tot. Refills 0, Maintenance, for constipation, 12/22/19 11:18:00 EDT, Route to Pharmacy Electronically, [facility]#[id number] Start Date: 12/22/19 Status: Ordered gabapentin 600 mg oral tablet 1 tablet = 600 mg, By Mouth, 3 times a day, # 90 tablet, 3 Refills, Maintenance, 05/26/21 15:36:00 EDT, [facility] #[id number] Start Date: 05/26/21 Stop Date: 09/23/21 Status: Ordered meloxicam 15 mg oral tablet 1 tablet = 15 mg, By Mouth, Daily, # 14 tablet, 0 Refills, Maintenance, 07/17/21 16:59:00 EST, Tablet, [facility] #[id number], Partial fill upon patient request if the prescription is for a schedule II opioid drug. Start Date: 07/17/21 Stop Date: 07/31/21 Status: Ordered prazosin 2 mg oral capsule 1 capsule = 2 mg, By Mouth, 4 times a day, # 120 capsule, 2 Refills, Maintenance, 05/26/21 15:34:00EDT, Capsule, [facility] #[id number], Partial fill upon patient request if the prescription isfor a schedule II opioid drug. Start Date: 05/26/21 Stop Date: 08/24/21 Status: Ordered traZODone 100 mg oral tablet 100 mg, 1, tablet, By Mouth, 2 times a day, # 180 tablet, Refills 0, Tot. Refills 0, Maintenance, 05/26/21 15:35:00 EDT, Route to Pharmacy Electronically, [facility] #[id number], Partial fill upon patient request if the prescription is for a sche... Start Date: 05/26/21 Status: Ordered traZODone 50 mg oral tablet 50 mg, 1, tablet, By Mouth, Daily at bedtime, # 30 tablet, Refills 2, Tot. Refills 2, Maintenance, 12/11/19 15:30:00 EDT, Route to Pharmacy Electronically, [facility] #[id number] Start Date: 12/11/19 Status: Ordered Vraylar 3 mg oral capsule 1 capsule = 3 mg, By Mouth, Daily, # 30 capsule, 2 Refills, Maintenance, 05/26/21 15:34:00 EDT, [facility] #[id number], Partial fill upon patient request if the [...]
--- OUTSIDE RECORDS SUMMARY | 2023-04-03 16:54 | XMS_ITS | Continuity of Care Document ---
Author Name Unknown Organization [facility] Address [address] [place] [address]- Care Team Providers Care Sack Sewer Machine Name Role Phone Avila Munoz MD Primary Care Physician [phone] Encounter [facility] [place] Date(s): 08/09/21 - 09/08/21 [facility] [address] [place] [address]- Attending Physician: Riccardo Pena Admitting Physician: AdmRiccardo francis Referring Physician: AdmtrRiccardo Allergies, Adverse Reactions, Alerts Substance Reaction Severity Status predniSONE Active Medications clonazePAM 0.5 mg oral tablet 1 tablet = 0.5 mg, By Mouth, 3 times a day, # 90 tablet, 2 Refills, Maintenance, 05/26/21 15:34:00 EDT, Tablet, [facility][id number], Partial fill upon patient request if the prescription is for a schedule II opioid drug. Start Date: 05/26/21 Stop Date: 08/24/21 Status: Ordered desvenlafaxine (as base) 100 mg oral tablet, extended release 1 tablet = 100 mg, By Mouth, Daily, # 30 tablet, 2 Refills, Maintenance, 05/26/21 15:35:00 EDT, ER Tablet, [facility] #[id number], Partial fill upon patient request if the prescription is for a schedule II opioid drug. Start Date: 05/26/21 Stop Date: 08/24/21 Status: Ordered docusate sodium 100 mg oral capsule 100 mg, 1, capsule, By Mouth, 2 times a day, PRN, # 20 capsule, Refills 0, Tot. Refills 0, Maintenance, for constipation, 12/22/19 11:18:00 EDT, Route to Pharmacy Electronically, [facility][id number] Start Date: 12/22/19 Status: Ordered gabapentin 600 mg oral tablet 1 tablet = 600 mg, By Mouth, 3 times a day, # 90 tablet, 3 Refills, Maintenance, 05/26/21 15:36:00 EDT, [facility] #[id number] Start Date: 05/26/21 Stop Date: 09/23/21 Status: Ordered meloxicam 15 mg oral tablet 1 tablet = 15 mg, By Mouth, Daily, # 14 tablet, 0 Refills, Maintenance, 07/17/21 16:59:00 EST, Tablet, [facility] #[id number], Partial fill upon patient request if the prescription is for a schedule II opioid drug. Start Date: 07/17/21 Stop Date: 07/31/21 Status: Ordered prazosin 2 mg oral capsule 1 capsule = 2 mg, By Mouth, 4 times a day, # 120 capsule, 2 Refills, Maintenance, 05/26/21 15:34:00EDT, Capsule, [facility] #[id number], Partial fill upon patient request if the prescription isfor a schedule II opioid drug. Start Date: 05/26/21 Stop Date: 08/24/21 Status: Ordered traZODone 100 mg oral tablet 100 mg, 1, tablet, By Mouth, 2 times a day, # 180 tablet, Refills 0, Tot. Refills 0, Maintenance, 05/26/21 15:35:00 EDT, Route to Pharmacy Electronically, [facility] #[id number], Partial fill upon patient request if the prescription is for a sche... Start Date: 05/26/21 Status: Ordered traZODone 50 mg oral tablet 50 mg, 1, tablet, By Mouth, Daily at bedtime, # 30 tablet, Refills 2, Tot. Refills 2, Maintenance, 12/11/19 15:30:00 EDT, Route to Pharmacy Electronically, [facility] #[id number] Start Date: 12/11/19 Status: Ordered Vraylar 3 mg oral capsule 1 capsule = 3 mg, By Mouth, Daily, # 30 capsule, 2 Refills, Maintenance, 05/26/21 15:34:00 EDT, [facility] #[id number], Partial fill upon patient request if the [...]
--- OUTSIDE RECORDS SUMMARY | 2023-04-03 16:54 | XMS_ITS | Continuity of Care Document ---
Author Name Unknown Organization [facility] Address [address] [place] [address]- Care Team Providers Care Ethnic Studies Professor Name Role Phone Alexander DEL CASTILLO, Avila Shea Primary Care Physician [facility]counter [facility] Date(s): 05/21/22 - 06/20/22 [facility] [address] [place] [address]- Allergies, Adverse Reactions, Alerts Substance Reaction Severity Status predniSONE Active Immunizations Given and Recorded Vaccine Date Status Refusal Reason [id number] 12y+ bivalent booster vax 06/07/22 Given influenza virus vaccine, inactivated 06/07/22 Give n Medications clonazePAM 0.5 mg oral tablet 1 tablet = 0.5 mg, By Mouth, 3 times a day, prn anxiety attacks, # 90 tablet, 1 Refills, Maintenance, 05/25/22 12:56:00 EDT, [facility] Start Date: 05/25/22 Stop Date: 07/24/22 Status: Ordered desvenlafaxine (as base) 100 mg oral tablet, extended release 1 tablet = 100 mg, By Mouth, Daily in AM, # 30 tablet, 5 Refills, Maintenance, 02/14/22 15:40:00 EDT, ER Tablet, [facility], Partial fill upon patient request if the prescription is for a schedule II opioid drug. FOR BUBBLE PACK PLEASE Start Date: 02/14/22 Stop Date: 08/13/22 Status: Ordered gabapentin 600 mg oral tablet 1 tablet, By Mouth, 3 times a day, X30 DAYS., # 90 tablet, 5 Refills, 02/14/22 15:39:00 EDT, [facility] Start Date: 02/14/22 Status: Ordered Orthotics See Instructions, # 2 each, Maintenance, dx: Ankle instability, chronic ankle inversion, 03/20/22 9:52:00 EDT, Supply Start Date: 03/20/22 Status: Ordered prazosin 2 mg oral capsule 1 capsule = 2 mg, By Mouth, 4 times a day, # 120 capsule, 5 Refills, Maintenance, 04/18/22 14:23:00EDT, Capsule, [facility], Partial fill upon patient request if the prescription is fora schedule II opioid drug. Start Date: 04/18/22 Stop Date: 10/15/22 Status: Ordered traZODone 100 mg oral tablet 200 mg, 2, tablet, By Mouth, Daily at bedtime, # 60 tablet, Refills 5, Tot. Refills 5, Maintenance,02/14/22 15:37:00 EDT, Route to Pharmacy Electronically, [facility], Partial fill uponpatient request if the prescription is for a schedu... Start Date: 02/14/22 Stop Date: 08/13/22 Status: Ordered Vitamin D3 1000 intl units oral tablet 1 tablet = 25 mcg, By Mouth, Daily, # 90 tablet, 1 Refills, Maintenance, 02/14/22 15:35:00 EDT, Tablet, [facility], Partial fill upon patient request if the prescription is for a schedule II opioid drug. Start Date: 02/14/22 Stop Date: 08/13/22 Status: Ordered Vraylar 3 mg oral capsule 1 capsule = 3 mg, By Mouth, Daily, dose increased, # 30 capsule, 5 Refills, Maintenance, 02/14/22 15:36:00 EDT, [facility], Partial fill upon patient request [...] Care team information Care Team Personnel Name: Avila Munoz MD Position: S Primary Care Physician Member Role: PCP Address: Address: [address] [place] [address] [place] [address]- Care Team Related Persons Name: JORDAN PÉREZ Address: [facility] [address] [place] [address]
--- OUTSIDE RECORDS SUMMARY | 2023-04-03 16:54 | XMS_ITS | Continuity of Care Document ---
Author Name Unknown Organization [facility] Address [address] [place] [address]- Care Team Providers Care Rock Room Worker Name Role Phone Alexander DEL CASTILLO, Avila Shea Primary Care Physician [facility]counter [facility] Date(s): 06/20/22 - 07/20/22 [facility] [address] [place] [address]- Allergies, Adverse Reactions, Alerts Substance Reaction Severity Status predniSONE Active Immunizations Given and Recorded Vaccine Date Status Refusal Reason [id number] 12y+ bivalent booster vax 06/07/22 Given influenza virus vaccine, inactivated 06/07/22 Give n Medications clonazePAM 0.5 mg oral tablet 1 tablet = 0.5 mg, By Mouth, 3 times a day, prn anxiety attacks, # 90 tablet, 1 Refills, Maintenance, 05/25/22 12:56:00 EDT, [facility] Start Date: 05/25/22 Stop Date: 07/24/22 Status: Ordered desvenlafaxine (as base) 100 mg oral tablet, extended release 1 tablet = 100 mg, By Mouth, Daily in AM, # 30 tablet, 5 Refills, Maintenance, 02/14/22 15:40:00 EDT, ER Tablet, [facility], Partial fill upon patient request if the prescription is for a schedule II opioid drug. FOR BUBBLE PACK PLEASE Start Date: 02/14/22 Stop Date: 08/13/22 Status: Ordered gabapentin 600 mg oral tablet 1 tablet, By Mouth, 3 times a day, X30 DAYS., # 90 tablet, 5 Refills, 02/14/22 15:39:00 EDT, [facility] Start Date: 02/14/22 Status: Ordered Orthotics See Instructions, # 2 each, Maintenance, dx: Ankle instability, chronic ankle inversion, 03/20/22 9:52:00 EDT, Supply Start Date: 03/20/22 Status: Ordered prazosin 2 mg oral capsule 1 capsule = 2 mg, By Mouth, 4 times a day, # 120 capsule, 5 Refills, Maintenance, 04/18/22 14:23:00EDT, Capsule, [facility], Partial fill upon patient request if the prescription is fora schedule II opioid drug. Start Date: 04/18/22 Stop Date: 10/15/22 Status: Ordered traZODone 100 mg oral tablet 200 mg, 2, tablet, By Mouth, Daily at bedtime, # 60 tablet, Refills 5, Tot. Refills 5, Maintenance,02/14/22 15:37:00 EDT, Route to Pharmacy Electronically, [facility], Partial fill uponpatient request if the prescription is for a schedu... Start Date: 02/14/22 Stop Date: 08/13/22 Status: Ordered Vitamin D3 1000 intl units oral tablet 1 tablet = 25 mcg, By Mouth, Daily, # 90 tablet, 1 Refills, Maintenance, 02/14/22 15:35:00 EDT, Tablet, [facility], Partial fill upon patient request if the prescription is for a schedule II opioid drug. Start Date: 02/14/22 Stop Date: 08/13/22 Status: Ordered Vraylar 3 mg oral capsule 1 capsule = 3 mg, By Mouth, Daily, dose increased, # 30 capsule, 5 Refills, Maintenance, 02/14/22 15:36:00 EDT, [facility], Partial fill upon patient request [...] Care Physician Member Role: PCP Address: Address: [address] [place] [address] [place] [address]- Care Team Related Persons Name: JORDAN PÉREZ Address: [facility] [address] [place] [address]
--- OUTSIDE RECORDS SUMMARY | 2023-04-03 16:54 | XMS_ITS | Continuity of Care Document ---
Author Name Unknown Organization [facility] Address [address] [facility] [place] [address]- Care Team Providers Care Preparing Box Tender Name Role Phone Alexander DEL CASTILLO, Avila Shea Primary Care Physician [phone] Encounter 12/14/19 - 02/18/20 [facility] [address], [address] [place] [address]- [phone] Attending Physician: Nayan Brito Admitting Physician: Nayan Brito Referring Physician: Nayan Brito Allergies, Adverse Reactions, Alerts Substance Reaction Severity Status predniSONE Active Medications docusate sodium 100 mg oral capsule 100 mg, 1, capsule, By Mouth, 2 times a day, PRN, # 20 capsule, Refills 0, Tot. Refills 0, Maintenance, for constipation, 12/22/19 11:18:00 EDT, Route to Pharmacy Electronically, [facility][id number] Start Date: 12/22/19 Status: Ordered gabapentin 600 mg oral tablet 1 tablet = 600 mg, By Mouth, 3 times a day, # 90 tablet, 2 Refills, Maintenance, 12/11/19 15:28:00 EDT, [facility] #[id number] Start Date: 12/11/19 Status: Ordered traZODone 50 mg oral tablet 50 mg, 1, tablet, By Mouth, Daily at bedtime, # 30 tablet, Refills 2, Tot. Refills 2, Maintenance, 12/11/19 15:30:00 EDT, Route to Pharmacy Electronically, [facility] #[id number] Start Date: 12/11/19 Status: Ordered Social History Social History Type Response Smoking Status 5-9 cigarettes (betw een 1/4 to 1/2 pack)/day in last 30 days;10 or more cigarettes (1/2 pack or more)/day in last 30 days entered on: 12/11/19 Sex Female
--- OUTSIDE RECORDS SUMMARY | 2023-04-03 16:54 | XMS_ITS | Continuity of Care Document ---
Author Name Unknown Organization [facility] Address [address] [place] [address]- Care Team Providers Care Truck Rental Clerk Name Role Phone Alexander DEL CASTILLO, Avila Shea Primary Care Physician Encounter [facility] [place] Date(s): 05/25/22 - 06/30/[address] [address] Attending Physician: Avila Munoz MD Admitting Physician: Avila Munoz MD Referring Physician: Avila Munoz MD Allergies, Adverse Reactions, Alerts Substance Reaction Severity Status predniSONE Active Immunizations Given and Recorded Vaccine Date Status Refusal Reason [id number] 12y+ bivalent booster vax 06/07/22 Given influenza virus vaccine, inactivated 06/07/22 Give n Medications clonazePAM 0.5 mg oral tablet 1 tablet = 0.5 mg, By Mouth, 3 times a day, prn anxiety attacks, # 90 tablet, 1 Refills, Maintenance, 05/25/22 12:56:00 EDT, [facility] Start Date: 05/25/22 Stop Date: 07/24/22 Status: Ordered desvenlafaxine (as base) 100 mg oral tablet, extended release 1 tablet = 100 mg, By Mouth, Daily in AM, # 30 tablet, 5 Refills, Maintenance, 02/14/22 15:40:00 EDT, ER Tablet, [facility], Partial fill upon patient request if the prescription is for a schedule II opioid drug. FOR BUBBLE PACK PLEASE Start Date: 02/14/22 Stop Date: 08/13/22 Status: Ordered gabapentin 600 mg oral tablet 1 tablet, By Mouth, 3 times a day, X30 DAYS., # 90 tablet, 5 Refills, 02/14/22 15:39:00 EDT, [facility] Start Date: 02/14/22 Status: Ordered Orthotics See Instructions, # 2 each, Maintenance, dx: Ankle instability, chronic ankle inversion, 03/20/22 9:52:00 EDT, Supply Start Date: 03/20/22 Status: Ordered prazosin 2 mg oral capsule 1 capsule = 2 mg, By Mouth, 4 times a day, # 120 capsule, 5 Refills, Maintenance, 04/18/22 14:23:00EDT, Capsule, [facility], Partial fill upon patient request if the prescription is fora schedule II opioid drug. Start Date: 04/18/22 Stop Date: 10/15/22 Status: Ordered traZODone 100 mg oral tablet 200 mg, 2, tablet, By Mouth, Daily at bedtime, # 60 tablet, Refills 5, Tot. Refills 5, Maintenance,02/14/22 15:37:00 EDT, Route to Pharmacy Electronically, [facility], Partial fill uponpatient request if the prescription is for a schedu... Start Date: 02/14/22 Stop Date: 08/13/22 Status: Ordered Vitamin D3 1000 intl units oral tablet 1 tablet = 25 mcg, By Mouth, Daily, # 90 tablet, 1 Refills, Maintenance, 02/14/22 15:35:00 EDT, Tablet, [facility], Partial fill upon patient request if the prescription is for a schedule II opioid drug. Start Date: 02/14/22 Stop Date: 08/13/22 Status: Ordered Vraylar 3 mg oral capsule 1 capsule = 3 mg, By Mouth, Daily, dose increased, # 30 capsule, 5 Refills, Maintenance, 02/14/22 15:36:00 EDT, [facility], Partial fill upon patient request [...] Name: Alexander DEL CASTILLO, Avila Shea Position: [facility] Primary Care Physician Member Role: PCP Address: Address: [address] [place] [address] [place] [address]- Care Team Related Persons Name: JORDAN PÉREZ Address: [facility] [address] [place] [address]
--- OUTSIDE RECORDS SUMMARY | 2023-04-03 16:54 | XMS_ITS | Continuity of Care Document ---
Author Name Unknown Organization [facility] Address [address] [place] [address]- Care Team Providers Care Lacquerer Name Role Phone Alexander DEL CASTILLO, Avila Shea Primary Care Physician [facility]counter [facility] Date(s): 06/07/22 - 07/07/22 [facility] [address] [place] [address]- Attending Physician: Riccardo Pena Admitting Physician: AdmRiccardo francis Referring Physician: AdmtrRiccardo Allergies, Adverse Reactions, Alerts Substance Reaction Severity Status predniSONE Active Immunizations Given and Recorded Vaccine Date Status Refusal Reason [id number] 12y+ bivalent booster vax 06/07/22 Given influenza virus vaccine, inactivated 06/07/22 Give n Medications clonazePAM 0.5 mg oral tablet 1 tablet = 0.5 mg, By Mouth, 3 times a day, prn anxiety attacks, # 90 tablet, 1 Refills, Maintenance, 05/25/22 12:56:00 EDT, [facility] Start Date: 05/25/22 Stop Date: 07/24/22 Status: Ordered desvenlafaxine (as base) 100 mg oral tablet, extended release 1 tablet = 100 mg, By Mouth, Daily in AM, # 30 tablet, 5 Refills, Maintenance, 02/14/22 15:40:00 EDT, ER Tablet, [facility], Partial fill upon patient request if the prescription is for a schedule II opioid drug. FOR BUBBLE PACK PLEASE Start Date: 02/14/22 Stop Date: 08/13/22 Status: Ordered gabapentin 600 mg oral tablet 1 tablet, By Mouth, 3 times a day, X30 DAYS., # 90 tablet, 5 Refills, 02/14/22 15:39:00 EDT, [facility] Start Date: 02/14/22 Status: Ordered Orthotics See Instructions, # 2 each, Maintenance, dx: Ankle instability, chronic ankle inversion, 03/20/22 9:52:00 EDT, Supply Start Date: 03/20/22 Status: Ordered prazosin 2 mg oral capsule 1 capsule = 2 mg, By Mouth, 4 times a day, # 120 capsule, 5 Refills, Maintenance, 04/18/22 14:23:00EDT, Capsule, [facility], Partial fill upon patient request if the prescription is fora schedule II opioid drug. Start Date: 04/18/22 Stop Date: 10/15/22 Status: Ordered traZODone 100 mg oral tablet 200 mg, 2, tablet, By Mouth, Daily at bedtime, # 60 tablet, Refills 5, Tot. Refills 5, Maintenance,02/14/22 15:37:00 EDT, Route to Pharmacy Electronically, [facility], Partial fill uponpatient request if the prescription is for a schedu... Start Date: 02/14/22 Stop Date: 08/13/22 Status: Ordered Vitamin D3 1000 intl units oral tablet 1 tablet = 25 mcg, By Mouth, Daily, # 90 tablet, 1 Refills, Maintenance, 02/14/22 15:35:00 EDT, Tablet, [facility], Partial fill upon patient request if the prescription is for a schedule II opioid drug. Start Date: 02/14/22 Stop Date: 08/13/22 Status: Ordered Vraylar 3 mg oral capsule 1 capsule = 3 mg, By Mouth, Daily, dose increased, # 30 capsule, 5 Refills, Maintenance, 02/14/22 15:36:00 EDT, [facility], Partial fill upon patient request [...] 30 days; Other: 1.5-2/2 days; entered on: 10/15/21 Sex Female Note * Event Display: Non BH Lab Results Authored Date: * Event Display: Non BH Lab Results Authored Date: * Event Display: Non BH Lab Results Authored Date: Patient Care team information Care Team Personnel Name: Alexander DEL CASTILLO, Avila Shea Position: S Primary Care Physician Member Role: PCP Address: Address: [address] [place] [address] [place] [address]- Care Team Related Persons Name: JORDAN PÉREZ Address: [facility] [address] [address]
--- OUTSIDE RECORDS SUMMARY | 2023-04-03 16:54 | XMS_ITS | Continuity of Care Document ---
Author Name Unknown Organization [facility] ter Address [address] [place] [id number]- Care Team Providers Care General Scrap Worker Name Role Phone Alexander DEL CASTILLO, Avila Shea Primary Care Physician Encounter [facility] [place] Date(s): 05/17/22 - 07/16/[address] [address] Attending Physician: Sirena Wynn NP Admitting Physician: Sirena Wynn NP Referring Physician: Sirena Wynn NP Allergies, Adverse Reactions, Alerts Substance Reaction Severity Status predniSONE Active Immunizations Given and Recorded Vaccine Date Status Refusal Reason [id number] 12y+ bivalent booster vax 06/07/22 Given influenza virus vaccine, inactivated 06/07/22 Give n Medications clonazePAM 0.5 mg oral tablet 1 tablet = 0.5 mg, By Mouth, 3 times a day, prn anxiety attacks, # 90 tablet, 1 Refills, Maintenance, 05/25/22 12:56:00 EDT, [facility] Start Date: 05/25/22 Stop Date: 07/24/22 Status: Ordered desvenlafaxine (as base) 100 mg oral tablet, extended release 1 tablet = 100 mg, By Mouth, Daily in AM, # 30 tablet, 5 Refills, Maintenance, 02/14/22 15:40:00 EDT, ER Tablet, [facility], Partial fill upon patient request if the prescription is for a schedule II opioid drug. FOR BUBBLE PACK PLEASE Start Date: 02/14/22 Stop Date: 08/13/22 Status: Ordered gabapentin 600 mg oral tablet 1 tablet, By Mouth, 3 times a day, X30 DAYS., # 90 tablet, 5 Refills, 02/14/22 15:39:00 EDT, [facility] Start Date: 02/14/22 Status: Ordered Orthotics See Instructions, # 2 each, Maintenance, dx: Ankle instability, chronic ankle inversion, 03/20/22 9:52:00 EDT, Supply Start Date: 03/20/22 Status: Ordered prazosin 2 mg oral capsule 1 capsule = 2 mg, By Mouth, 4 times a day, # 120 capsule, 5 Refills, Maintenance, 04/18/22 14:23:00EDT, Capsule, [facility], Partial fill upon patient request if the prescription is fora schedule II opioid drug. Start Date: 04/18/22 Stop Date: 10/15/22 Status: Ordered traZODone 100 mg oral tablet 200 mg, 2, tablet, By Mouth, Daily at bedtime, # 60 tablet, Refills 5, Tot. Refills 5, Maintenance,02/14/22 15:37:00 EDT, Route to Pharmacy Electronically, [facility], Partial fill uponpatient request if the prescription is for a schedu... Start Date: 02/14/22 Stop Date: 08/13/22 Status: Ordered Vitamin D3 1000 intl units oral tablet 1 tablet = 25 mcg, By Mouth, Daily, # 90 tablet, 1 Refills, Maintenance, 02/14/22 15:35:00 EDT, Tablet, [facility], Partial fill upon patient request if the prescription is for a schedule II opioid drug. Start Date: 02/14/22 Stop Date: 08/13/22 Status: Ordered Vraylar 3 mg oral capsule 1 capsule = 3 mg, By Mouth, Daily, dose increased, # 30 capsule, 5 Refills, Maintenance, 02/14/22 15:36:00 EDT, [facility], Partial fill upon patient request [...] Name: Alexander DEL CASTILLO, Avila Shea Position: [facility] Primary Care Physician Member Role: PCP Address: Address: [address] [place] [address] [place] [address]- Care Team Related Persons Name: JORDAN PÉREZ Address: [facility] [address] [place] [address]
--- OUTSIDE RECORDS SUMMARY | 2023-04-03 16:54 | XMS_ITS | Continuity of Care Document ---
Author Name Unknown Organization [facility] Address [address] [place] [address]- Care Team Providers Care Fitter Tacker Name Role Phone Avila Munoz MD Primary Care Physician Encounter [facility] [place] Date(s): 12/22/19 - 01/21/20 [facility] [address] [place] [address]- [facility] Attending Physician: AdmRiccardo francis Admitting Physician: AdmtrRiccardo Referring Physician: Admtr, Ar8 Allergies, Adverse Reactions, Alerts Substance Reaction Severity Status predniSONE Active Medications docusate sodium 100 mg oral capsule 100 mg, 1, capsule, By Mouth, 2 times a day, PRN, # 20 capsule, Refills 0, Tot. Refills 0, Maintenance, for constipation, 12/22/19 11:18:00 EDT, Route to Pharmacy Electronically, [facility][id number] Start Date: 12/22/19 Status: Ordered gabapentin 600 mg oral tablet 1 tablet = 600 mg, By Mouth, 3 times a day, # 90 tablet, 2 Refills, Maintenance, 12/11/19 15:28:00 EDT, [facility][id number] Start Date: 12/11/19 Status: Ordered traZODone 50 mg oral tablet 50 mg, 1, tablet, By Mouth, Daily at bedtime, # 30 tablet, Refills 2, Tot. Refills 2, Maintenance, 12/11/19 15:30:00 EDT, Route to Pharmacy Electronically, [facility] #[id number] Start Date: 12/11/19 Status: Ordered Social History Social History Type Response Smoking Status 5-9 cigarettes (betw een 1/4 to 1/2 pack)/day in last 30 days;10 or more cigarettes (1/2 pack or more)/day in last 30 days entered on: 12/11/19 Sex Female
--- OUTSIDE RECORDS SUMMARY | 2023-04-03 16:55 | XMS_ITS | Continuity of Care Document ---
Author Name Unknown Organization [facility] Address [address] [place] [address]- Care Team Providers Care Repacker Name Role Phone Aivla Munoz MD Primary Care Physician [place] [facility] [place] 09/[place]21 [facility] [address] [place], [place] [address] Attending Physician: Not on Staff, Attending MD Allergies, Adverse Reactions, Alerts Substance Reaction Severity Status predniSONE Active Medications clonazePAM 0.5 mg oral tablet 1 tablet = 0.5 mg, By Mouth, 3 times a day, # 90 tablet, 2 Refills, Maintenance, 05/26/21 15:34:00 EDT, Tablet, [facility] #[id number], Partial fill upon patient request if the prescription is for a schedule II opioid drug. Start Date: 05/26/21 Stop Date: 08/24/21 Status: Ordered desvenlafaxine (as base) 100 mg oral tablet, extended release 1 tablet = 100 mg, By Mouth, Daily, # 30 tablet, 2 Refills, Maintenance, 05/26/21 15:35:00 EDT, ER Tablet, [facility] #[id number], Partial fill upon patient request if the prescription is for a schedule II opioid drug. Start Date: 05/26/21 Stop Date: 08/24/21 Status: Ordered docusate sodium 100 mg oral capsule 100 mg, 1, capsule, By Mouth, 2 times a day, PRN, # 20 capsule, Refills 0, Tot. Refills 0, Maintenance, for constipation, 12/22/19 11:18:00 EDT, Route to Pharmacy Electronically, [facility][id number] Start Date: 12/22/19 Status: Ordered gabapentin 600 mg oral tablet 1 tablet = 600 mg, By Mouth, 3 times a day, # 90 tablet, 3 Refills, Maintenance, 05/26/21 15:36:00 EDT, [facility] #[id number] Start Date: 05/26/21 Stop Date: 09/23/21 Status: Ordered meloxicam 15 mg oral tablet 1 tablet = 15 mg, By Mouth, Daily, # 14 tablet, 0 Refills, Maintenance, 07/17/21 16:59:00 EST, Tablet, [facility] #[id number], Partial fill upon patient request if the prescription is for a schedule II opioid drug. Start Date: 07/17/21 Stop Date: 07/31/21 Status: Ordered prazosin 2 mg oral capsule 1 capsule = 2 mg, By Mouth, 4 times a day, # 120 capsule, 2 Refills, Maintenance, 05/26/21 15:34:00EDT, Capsule, [facility] #[id number], Partial fill upon patient request if the prescription isfor a schedule II opioid drug. Start Date: 05/26/21 Stop Date: 08/24/21 Status: Ordered traZODone 100 mg oral tablet 100 mg, 1, tablet, By Mouth, 2 times a day, # 180 tablet, Refills 0, Tot. Refills 0, Maintenance, 05/26/21 15:35:00 EDT, Route to Pharmacy Electronically, [facility] #[id number], Partial fill upon patient request if the prescription is for a sche... Start Date: 05/26/21 Status: Ordered traZODone 50 mg oral tablet 50 mg, 1, tablet, By Mouth, Daily at bedtime, # 30 tablet, Refills 2, Tot. Refills 2, Maintenance, 12/11/19 15:30:00 EDT, Route to Pharmacy Electronically, [facility] #[id number] Start Date: 12/11/19 Status: Ordered Vraylar 3 mg oral capsule 1 capsule = 3 mg, By Mouth, Daily, # 30 capsule, 2 Refills, Maintenance, 05/26/21 15:34:00 EDT, [facility] #[id number], Partial fill upon patient request if the [...]
--- OUTSIDE RECORDS SUMMARY | 2023-04-03 16:55 | XMS_ITS | Continuity of Care Document ---
Author Name Unknown Organization [facility] Address [address] [place] [address]- Care Team Providers Care Continuous Dryout Operator Helper Name Role Phone Alexander DEL CASTILLO, Avila Shea Primary Care Physician Encounter [facility] Date(s): 11/27/22 - 12/27/22 [facility] [address] [place] [address]- Allergies, Adverse Reactions, Alerts Substance Reaction Severity Status predniSONE Active Immunizations Given and Recorded Vaccine Date Status Refusal Reason [id number] 12y+ bivalent booster vax 06/07/22 Given influenza virus vaccine, inactivated 06/07/22 Give n Medications clonazePAM 0.5 mg oral tablet 1 tablet = 0.5 mg, By Mouth, 3 times a day, prn anxiety attacks, # 90 tablet, 1 Refills, Maintenance, 07/27/22 14:13:00 EST, [facility] Start Date: 07/27/22 Stop Date: 09/25/22 Status: Ordered desvenlafaxine (as base) 100 mg oral tablet, extended release 1 tablet = 100 mg, By Mouth, Daily in AM, # 30 tablet, 5 Refills, Maintenance, 02/14/22 15:40:00 EDT, ER Tablet, [facility], Partial fill upon patient request if the prescription is for a schedule II opioid drug. FOR BUBBLE PACK PLEASE Start Date: 02/14/22 Stop Date: 08/13/22 Status: Ordered gabapentin 600 mg oral tablet 1 tablet, By Mouth, 3 times a day, X30 DAYS., # 90 tablet, 5 Refills, 02/14/22 15:39:00 EDT, [facility] Start Date: 02/14/22 Status: Ordered Orthotics See Instructions, # 2 each, Maintenance, dx: Ankle instability, chronic ankle inversion, 03/20/22 9:52:00 EDT, Supply Start Date: 03/20/22 Status: Ordered prazosin 2 mg oral capsule 1 capsule = 2 mg, By Mouth, 4 times a day, # 120 capsule, 5 Refills, Maintenance, 04/18/22 14:23:00EDT, Capsule, [facility], Partial fill upon patient request if the prescription is fora schedule II opioid drug. Start Date: 04/18/22 Stop Date: 10/15/22 Status: Ordered traZODone 100 mg oral tablet 200 mg, 2, tablet, By Mouth, Daily at bedtime, # 60 tablet, Refills 5, Tot. Refills 5, Maintenance,02/14/22 15:37:00 EDT, Route to Pharmacy Electronically, [facility], Partial fill uponpatient request if the prescription is for a schedu... Start Date: 02/14/22 Stop Date: 08/13/22 Status: Ordered Vitamin D3 1000 intl units oral tablet 1 tablet = 25 mcg, By Mouth, Daily, # 90 tablet, 1 Refills, Maintenance, 02/14/22 15:35:00 EDT, Tablet, [facility], Partial fill upon patient request if the prescription is for a schedule II opioid drug. Start Date: 02/14/22 Stop Date: 08/13/22 Status: Ordered Vraylar 3 mg oral capsule 1 capsule = 3 mg, By Mouth, Daily, dose increased, # 30 capsule, 5 Refills, Maintenance, 02/14/22 15:36:00 EDT, [facility], Partial fill upon patient request [...] Care Physician Member Role: PCP Address: Address: [address] [place] [address] [place] [address]- Care Team Related Persons Name: JORDAN PÉREZ Address: [facility] [address] [place] [address]
[2023-04-03] MEDS: 0.9 % Sodium Chloride 1,000 ML 999 ML IVCONT (17:47)
[2023-04-03] MEDS: ondansetron HCL 4 MG/2 ML VIAL IVPUSH (17:47)
[2023-04-03] MEDS: iohexoL 350 MG/ML 100 ML INFUS..BTL IV (18:03)
[2023-04-03] MEDS: Morphine Sulfate 4 MG/ML CARTRIDGE IVPUSH (18:57)
[2023-04-03] MEDS: Ketorolac Tromethamine 30 MG/ML VIAL IVPUSH (18:57)
--- NOTE | 2023-04-03 20:30 | PC.NURSE ---
pt AMBULATORY TO AND FROM BATHROOM WITH STEADY GAIT . UNABLE TO GIVE STOOL SAMPLE AT THIS TIME.
[2023-04-03 20:34] VITALS: BP 135/70; PULSE 60; RESP 16; O2SAT 98
== END 2023-04-03 20:35 | disposition home or self-care (01) ==
PROVIDERS: Physician Assistant; Emergency Provider Emergency Medicine; PCP Nurse Practitioner Family
DX: R11.2 Nausea with vomiting, unspecified (principal); R19.7 Diarrhea, unspecified; R50.9 Fever, unspecified; R10.13 Epigastric pain; R51.9 Headache, unspecified; Z79.899 Other long term (current) drug therapy
CPT/HCPCS: 36415; 74177; 80053; 81001; 81025; 83690; 85025; 87507; 96361; 96374; 96375; 99284; J1885; J2270; J2405; Q9967